=== PATIENT | male | born 1955 | race American Indian/Alaskan Native ===

== ENCOUNTER 2017-07-08 18:28 | Emergency (ER) | payer OTHER ==
[2017-07-08 18:39] VITALS: BMI 39.9
[2017-07-08 20:12] LABS: BASO % 0.7 % (0-2.0); EOS % 0.8 % (0-4.5); HEMOGLOBIN 13.3 GM/dL (11.7-16.9); LYMPH % 20.8 % (8-40); MCH 32.1 pg (25.7-33.7); MCHC 34.2 g/dl (32.0-35.9); MEAN CELL VOLUME 93.7 fl (80-96); MEAN PLT VOLUME 8.1 fl (7.5-11.1); MONO % 10.2 % (3.8-10.2); NEUT % 67.5 % (42.8-82.8); PLATELET COUNT 271 K/MM3 (134-434); RBC 4.16 M/mm3 (4.00-5.60); RDW 14.3 % (11.9-15.9); WHITE BLOOD COUNT 7.4 K/mm3 (4.0-10.0)
[2017-07-08] MEDS ORDERED: ACETAMINOPHEN 1000 MG/100 ML VIAL (NON FORMULARY) IVPB ONE (20:20)
[2017-07-08] MEDS ORDERED: FUROSEMIDE 40 MG/4 ML INJECTABLE VIAL IVPUSH ONE (20:20)
[2017-07-08] MEDS ORDERED: FUROSEMIDE 40 MG/4 ML INJECTABLE VIAL ONE (20:26)
[2017-07-08] MEDS ORDERED: ACETAMINOPHEN INJECTION 100 ML IVPB ONE (20:26)
[2017-07-08 20:28] LABS: INR 1.04 (0.82-1.09); PROTHROMBIN TIME (PATIENT) 11.8 SEC (9.7-13.0)
[2017-07-08] MEDS ORDERED: DIPHTH,PERTUSS(ACELL),TET 0.5 ML DISP.SYRIN IM ONE (20:30)
--- NOTE | 2017-07-08 20:31 | PDOC ---
History of Present Illness - General History Source: Patient Exam Limitations: No Limitations - History of Present Illness Initial Comments: 07/08/17 21:26 Patient is a 61 year old male with a significant past medical history of HTN, Diabetes, who presents to the ED with left sided chest pain, s/p fall that occured 2 days ago. Patient reports walking down the stairs 2 days ago when he lost his footing, causing him to trip and fall down the stairs, landing on his chest. He reports experiencing slight chest pain soon after the initial incident but did not seek treatment. Patient states experiencing left sided rib pain as well as left big toe pain and multiple abrasions on his left mid su. Patient reports experiencing associated symptoms of increased fever that began earlier this afternoon, prompting him to come into the ED for further evaluation. Denies Sob, loss of consciousness, head trauma, Denies chills, cough. Denies nausea, vomiting. Denies contact with sick individuals, out of state travelling. Denies any other symptoms. Allergies: None Social history: Lives alone. No smoking. No alcohol. No illicit drugs. Surgical history: None PMD: Dr. Jose Chen <William Canseco - Last Filed: 07/08/17 21:26> <Keesha eLe - Last Filed: 07/08/17 23:08> - General Chief Complaint: Injury Stated Complaint: CHEST PAIN Time Seen by Provider: 07/08/17 20:18 Past History <William Canseco - Last Filed: 07/08/17 21:26> - Past Medical History CVA: No COPD: No DVT: No Dementia: No - Immunization History Immunization Up to Date: Yes - Suicide/Smoking/Psychosocial Hx Smoking History: Never smoked Have you smoked in the past 12 months: No Information on smoking cessation initiated: No Hx Alcohol Use: No Drug/Substance Use Hx: No Substance Use Type: None <Keesha Lee - Last Filed: 07/08/17 23:08> - Past Medical History Allergies/Adverse Reactions: Allergies Allergy/AdvReac Type Severity Reaction Status Date / Time No Known Allergies Allergy Verified 07/08/17 20:02 Home Medications: Ambulatory Orders NK [No Known Home Medication] 07/08/17 Review of Systems - Review of Systems Able to Perform ROS?: Yes Comments:: 07/08/17 21:26 GENERAL/CONSTITUTIONAL: +Fever. No chills. No weakness. HEAD, EYES, EARS, NOSE AND THROAT: No change in vision. No ear pain or discharge. No sore throat. CARDIOVASCULAR: +Left chest pain. No shortness of breath. RESPIRATORY: No cough, wheezing, or hemoptysis. GASTROINTESTINAL: No nausea, vomiting, diarrhea or constipation. GENITOURINARY: No dysuria, frequency, or change in urination. MUSCULOSKELETAL: +Left big toe pain. +Left lower rib pain. No joint or muscle swelling or pain. No neck or back pain. SKIN: No rash NEUROLOGIC: No headache, vertigo, loss of consciousness, or change in strength/ sensation. ENDOCRINE: No increased thirst. No abnormal weight change. HEMATOLOGIC/LYMPHATIC: No anemia, easy bleeding, or history of blood clots. ALLERGIC/IMMUNOLOGIC: No hives or skin allergy. All Other Systems: Reviewed and Negative <William Canseco - Last Filed: 07/08/17 21:26> *Physical Exam - Vital Signs Last Vital Signs Temp Pulse Resp BP Pulse Ox 100.6 F H 80 18 168/103 94 L 07/08/17 18:35 07/08/17 18:35 07/08/17 18:35 07/08/17 18:35 07/08/17 18:35 - Physical Exam Comments: 07/08/17 21:26 GENERAL: Awake, alert, and fully oriented, in no acute distress HEAD: No signs of trauma EYES: PERRLA, EOMI, sclera anicteric, conjunctiva clear ENT: Auricles normal inspection, hearing grossly normal, nares patent, oropharynx clear without exudates. Moist mucosa NECK: Normal ROM, supple, no lymphadenopathy, JVD, or masses LUNGS: Breath sounds equal, clear to auscultation bilaterally. No wheezes, and no crackles HEART: Regular rate and rhythm, normal S1 and S2, no murmurs, rubs or gallops MUSCULOSKELETAL: +Left lower rib tenderness. ABDOMEN: Soft, nontender, normoactive bowel sounds. No guarding, no rebound. No masses EXTREMITIES: +Three left mid su abrasions. +Left big toe tenderness. No swelling. No erythema. No warmth. No rash. Normal range of motion, no edema. No clubbing or cyanosis. No cords, erythema, or tenderness NEUROLOGICAL: Cranial nerves II through XII grossly intact. Normal speech, normal gait SKIN: Warm, Dry, normal turgor, no rashes or lesions noted. <Yancy Cansecoew - Last Filed: 07/08/17 21:26> - Vital Signs Last Vital Signs Temp Pulse Resp BP Pulse Ox 100.6 F H 80 18 168/103 94 L 07/08/17 18:35 07/08/17 18:35 07/08/17 18:35 07/08/17 18:35 07/08/17 18:35 <Keesha Lee - Last Filed: 07/08/17 23:08> ED Treatment Course - LABORATORY CBC & Chemistry Diagram: 07/08/17 20:00 07/08/17 20:00 - ADDITIONAL ORDERS Additional order review: Laboratory Results 07/08/17 07/08/17 07/08/17 20:40 20:40 20:00 PT with INR INR Sodium 140 Potassium 4.5 Chloride 107 Carbon Dioxide 27 Anion Gap 6 L BUN 23 H Creatinine 1.2 Creat Clearance w eGFR > 60 Random Glucose 109 H Calcium 8.6 Total Bilirubin 0.2 AST 29 ALT 26 Alkaline Phosphatase 82 Creatine Kinase 265 Creatine Kinase Index 0.5 CK-MB (CK-2) 1.560 Troponin I < 0.02 B-Natriuretic Peptide 22.21 Total Protein 7.1 Albumin 3.5 Urine Color Straw Urine Appearance Clear Urine pH 7.0 Ur Specific [place] 1.012 Urine Protein Negative Urine Glucose (UA) Negative Urine Ketones Negative Urine Blood Negative Urine Nitrite Negative Urine Bilirubin Negative Urine Urobilinogen Negative Ur Leukocyte Esterase Negative 07/08/17 20:00 PT with INR 11.80 INR 1.04 Sodium Potassium Chloride Carbon Dioxide Anion Gap BUN Creatinine Creat Clearance w eGFR Random Glucose Calcium Total Bilirubin AST ALT Alkaline Phosphatase Creatine Kinase Creatine Kinase Index CK-MB (CK-2) Troponin I B-Natriuretic Peptide Total Protein Albumin Urine Color Urine Appearance Urine pH Ur Specific Zenda Urine Protein Urine Glucose (UA) Urine Ketones Urine Blood Urine Nitrite Urine Bilirubin Urine Urobilinogen Ur Leukocyte Esterase 07/08/17 20:00 RBC 4.16 MCV 93.7 MCHC 34.2 RDW 14.3 MPV 8.1 Neutrophils % 67.5 Lymphocytes % 20.8 Monocytes % 10.2 Eosinophils % 0.8 Basophils % 0.7 - Medications Given in the ED: ED Medications Discontinued Medications Generic Name Dose Route Start Last Admin Trade Name Freana PRN Reason Stop Dose Admin Acetaminophen 1,000 mg 07/08/17 20:20 07/08/17 20:25 Ofirmev Injection - IVPB 07/08/17 20:21 1,000 mg ONCE ONE Administration Bacitracin 1 applic 07/08/17 20:35 07/08/17 20:38 Bacitracin - TP 07/08/17 20:36 1 applic ONCE ONE Administration Diphtheria/Tetanus/Acell Pertussis 0.5 ml 07/08/17 20:30 07/08/17 20:38 Boostrix - IM 07/08/17 20:31 0.5 ml .ONCE ONE Administration Furosemide 40 mg 07/08/17 20:20 07/08/17 20:25 Lasix Injection - IVPUSH 07/08/17 20:21 40 mg ONCE ONE Administration <William Canseco - Last Filed: 07/08/17 21:26> - LABORATORY CBC & Chemistry Diagram: 07/08/17 20:00 07/08/17 20:00 - ADDITIONAL ORDERS Additional order review: Laboratory Results 07/08/17 20:00 PT with INR 11.80 INR 1.04 07/08/17 20:00 RBC 4.16 MCV 93.7 MCHC 34.2 RDW 14.3 MPV 8.1 Neutrophils % 67.5 Lymphocytes % 20.8 Monocytes % 10.2 Eosinophils % 0.8 Basophils % 0.7 - RADIOLOGY Radiology Studies Ordered: Category Date Time Status CHEST X-RAY PORTABLE* [RAD] Stat Radiology 07/08/17 20:08 Taken TOE(S) LEFT [RAD] Stat Radiology 07/08/17 20:30 Ordered - Medications Given in the ED: ED Medications Discontinued Medications Generic Name Dose Route Start Last Admin Trade Name Freana PRN Reason Stop Dose Admin Acetaminophen 1,000 mg 07/08/17 20:20 07/08/17 20:25 Ofirmev Injection - IVPB 07/08/17 20:21 1,000 mg ONCE ONE Administration Furosemide 40 mg 07/08/17 20:20 07/08/17 20:25 Lasix Injection - IVPUSH 07/08/17 20:21 40 mg ONCE ONE Administration <Keesha Lee - Last Filed: 07/08/17 23:08> Medical Decision Making - Medical Decision Making 07/08/17 20:31 Pt notes that he trippend down steps in his home today. No dizziness, or seizure or weakness, likely mechanical. Pt fell forward onto chest and left floating ribs. Pt has tenderness there. He also complains of left 1st toe pain after the fall. He has scrapes on his Left su in 3 places. Pt has a fever at this time, but he has no SOB, and he has no dysuria. We will check a UA/urine culture, as he has known prostatitis/prostate enlargement. blood cultures will also be sent We will treat pt with lasix, ofirmev (liquid tylenol) , tdap and bacitracin for the su wounds. Pt had CXR which demonstrates a boot shaped heart. Labs pending. 07/08/17 20:35 Pt is a [employer] business asst. Pt's PMD is Dr. Chen. Pt cannot tell us all his meds, but he is complaint with them. He recalls water pill, flomax, amlodipine. 07/08/17 21:18 Pt has normal blood tests and he has normal UA. He has no focus for fever. 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 Pt has no nausea or vomting or cough. 07/08/17 21:54 Pt has distal tip of toe deformity. Possible tuft fracture; I will pool tape the toe. 07/08/17 23:07 Pt's fever has come down. I will diagnose him has a viral illness and a fall resulting in toe and su and rib injuries. <Keesha Lee - Last Filed: 07/08/17 23:08> *DC/Admit/Observation/Transfer - Attestations Scribe Attestion: 07/08/17 21:26 Documentation prepared by William Canseco, acting as biomedical specialist for Keesha Lee MD/DO. <William Canseco - Last Filed: 07/08/17 21:26> - Discharge Dispostion Admit: No <Keesha Lee - Last Filed: 07/08/17 23:08> Diagnosis at time of Disposition: Toe injury, Abrasion of leg, Contusion of rib on left side - Discharge Dispostion Disposition: HOME Condition at time of disposition: Stable - Referrals Referrals: ON STAFF,NOT [Primary Care Provider] - - Patient Instructions Printed Discharge Instructions: Toe Fracture, DI for Chest Pain - Post Discharge Activity Forms/Work/School Notes: Back to Work
[2017-07-08 20:34] LABS: ALBUMIN 3.5 g/dl (3.4-5.0); ANION GAP 6 (8-16); BILIRUBIN,TOTAL 0.2 mg/dL (0.2-1.0); BLOOD UREA NITROGEN 23 mg/dL (7-18); CALCIUM 8.6 mg/dL (8.5-10.1); CHLORIDE 107 mmol/L (98-107); CO2 27 mmol/L (21-32); CREATININE 1.2 mg/dL (0.7-1.3); GLUCOSE,RANDOM 109 mg/dL (74-106); SGPT/ALT 26 U/L (12-78); SODIUM 140 mmol/L (136-145); TOT PROT 7.1 g/dl (6.4-8.2)
[2017-07-08] MEDS ORDERED: BACITRACIN 15 GM TUBE TOPICAL OINTMENT TP ONE (20:35)
[2017-07-08 20:36] LABS: ALK PHOS 82 U/L (45-117)
[2017-07-08 20:37] LABS: POTASSIUM 4.5 mmol/L (3.5-5.1)
[2017-07-08 20:38] LABS: SGOT/AST 29 U/L (15-37)
[2017-07-08 20:54] LABS: URINE APPEARANCE CLEAR; URINE BILIRUBIN NEGATIVE (<2.0 mg/dL); URINE BLOOD NEGATIVE (NEGATIVE); URINE COLOR STRAW; URINE GLUCOSE (UA) NEGATIVE (NEGATIVE); URINE KETONE NEGATIVE (NEGATIVE); URINE LEUK ESTERASE NEGATIVE (NEGATIVE); URINE NITRITE NEGATIVE (NEGATIVE); URINE PROTEIN NEGATIVE (NEGATIVE); URINE UROBILINOGEN NEGATIVE mg/dL (0.2-1.0)
[2017-07-08 22:24] VITALS: BP 123/80; PULSE 87; TEMP 98.3
--- NOTE | 2017-07-09 10:46 | EKG ---
Test Reason : Blood Pressure : / mmHG Vent. Rate : 063 BPM Atrial Rate : 063 BPM P-R Int : 182 ms QRS Dur : 104 ms QT Int : 400 ms P-R-T Axes : 040 -36 039 degrees QTc Int : 409 ms NORMAL SINUS RHYTHM POSSIBLE LEFT ATRIAL ENLARGEMENT LEFT AXIS DEVIATION INCOMPLETE RIGHT BUNDLE BRANCH BLOCK LEFT VENTRICULAR HYPERTROPHY NONSPECIFIC T WAVE ABNORMALITY ABNORMAL ECG NO PREVIOUS ECGS AVAILABLE Confirmed by GERARDO CROWLEY MD ([id number]) on 07/09/2017 10:45:44 AM Referred By: Confirmed By:GERARDO CROWLEY MD
== END 2017-07-08 22:32 | disposition home or self-care (01) ==
LOC: JER 18:28
DX: S20.212A Contusion of left front wall of thorax, initial encounter (principal); S92.492A Other fracture of left great toe, initial encounter for closed fracture; S80.812A Abrasion, left lower leg, initial encounter; W10.8XXA Fall (on) (from) other stairs and steps, initial encounter; Y93.89 Activity, other specified; Y92.89 Other specified places as the place of occurrence of the external cause; Y99.8 Other external cause status; I10 Essential (primary) hypertension; E11.9 Type 2 diabetes mellitus without complications; N40.0 Benign prostatic hyperplasia without lower urinary tract symptoms; B34.9 Viral infection, unspecified
CPT/HCPCS: 36415; 71045-TC-FY; 71101-TC-FY; 73660-TC-FY; 80053; 81003; 82550; 82553; 83880; 84484; 85025; 85610; 87086; 90715; 93005; 93010; 99285-25; J0131